=== PATIENT | male | born 1930 | race Caucasian/White ===

== ENCOUNTER 2018-08-30 13:54 | Emergency (ER) | payer OTHER, MEDICARE ==
[2018-08-30] MEDS ORDERED: LIDOCAINE 1% MPF 30 ML VIAL ONE (14:34)
[2018-08-30] MEDS ORDERED: CEPHALEXIN 250 MG CAP ONE (15:38)
[2018-08-30] MEDS ORDERED: TETANUS & DIPHTHERIA TOX,ADULT 0.5 ML VIAL ONE (15:38)
[2018-08-30] MEDS ORDERED: HYDROCODONE/APAP 7.5/325 MG TAB ONE (15:38)
--- NOTE | 2018-08-30 16:02 | ER ---
Nurse's Notes [facility] Name: Ariel Ibarra Jr Age: 88 yrs Sex: Male : 1930 Arrival Date: 08/30/2018 Time: 13:56 Bed 8 Private MD: Gm Sommer R Diagnosis: Fall due to bumping against object;Laceration without foreign body of other part of head-lip , through and through;Fracture of tooth (traumatic) Presentation: 08/30 14:01 Presenting complaint: Patient states: got his foot caught on a step and fell face sv forward, abrasions to face, bilateral hands, right knee pain, and knocked a front tooth out. Care prior to arrival: None. Mechanism of Injury: Fall from standing position. Trauma event details: Injury occurred in the [facility], Injury occurred: at home. Injury occurred: August 30, 2018. 14:01 Acuity: JING 3 sv 14:01 Method Of Arrival: Ambulatory sv 14:29 Transition of care: patient was not received from another setting of care. Onset of tw2 symptoms was August 30, 2018. Risk Assessment: Do you want to hurt yourself or someone else? Patient reports no desire to harm self or others. Initial Sepsis Screen: Does the patient meet any 2 criteria? No. Patient's initial sepsis screen is negative. Does the patient have a suspected source of infection? No. Patient's initial sepsis screen is negative. Trauma Activation: Not Applicable Physician: ED Physician; Name: ; Notified At: ; Arrived At: Physician: General Surgeon; Name: ; Notified At: ; Arrived At: Physician: Radiology; Name: ; Notified At: ; Arrived At: Physician: Respiratory; Name: ; Notified At: ; Arrived At: Physician: Lab; Name: ; Notified At: ; Arrived At: Historical: - Allergies: 14:03 No Known Allergies; sv - Home Meds: 14:32 aspirin 81 mg Oral TbEC 1 tab once daily [Active]; Centrum Silver Oral daily [Active]; tw2 lisinopril-hydrochlorothiazide 10-12.5 mg Oral tab 1 tab once daily [Active]; - PMHx: 14:03 Atrial Fib; HARD OF HEARING; Hypertension; sv - PSHx: 14:03 Appendectomy; Hernia repair; sv - Immunization history:: Adult Immunizations up to date. - Social history:: Smoking status: Patient/guardian denies using tobacco. - Immunization history: Last tetanus immunization: unknown. - Ebola Screening: : No symptoms or risks identified at this time. - Family history:: not pertinent. Screenin:08 Abuse screen: Denies threats or abuse. Nutritional screening: No deficits noted. tw2 Tuberculosis screening: No symptoms or risk factors identified. Fall Risk None identified. Primary Survey: 14:08 A: Airway: patent. Breathing/Chest: Respiratory pattern: regular, Respiratory effort: tw2 spontaneous, unlabored, Breath sounds: clear, bilaterally. Chest inspection: symmetrical rise and fall of the chest. Circulation: Heart tones present. Disability Alert. 15:15 Reassessment Airway Airway Patent Breathing/Chest Respiratory pattern Regular tw2 Respiratory effort Spontaneous Unlabored Breath sounds Clear Chest inspection Symmetrical Circulation Heart tones Present Disability Alert. Secondary Survey: 14:15 HEENT: Face Other abrasions noted to nose, lip, and chin, with laceration to the upper tw2 lip. Gastrointestinal: Abdomen is soft. : No signs and/or symptoms were reported regarding the genitourinary system. Musculoskeletal: Range of motion: intact in all extremities. pt has blood blister on the left ring finger, multiple abrasions noted to right and left hand. Assessment: 14:15 General: Appears in no apparent distress. Behavior is calm, cooperative, appropriate tw2 for age. Pain: Complains of pain in philtrum and upper vermilion border. Neuro: Level of Consciousness is awake, alert, obeys commands, Oriented to person, place, time, situation. Cardiovascular: Heart tones S1 S2 Patient's skin is warm and dry. Respiratory: Airway is patent Respiratory effort is even, unlabored, Respiratory pattern is regular, symmetrical, Breath sounds are clear bilaterally. GI: No signs and/or symptoms were reported involving the gastrointestinal system. Abdomen is flat, Bowel sounds present X 4 quads. : No signs and/or symptoms were reported regarding the genitourinary system. EENT: No signs and/or symptoms were reported regarding the EENT system. Derm: Skin is pink, warm \T\ dry. Skin temperature is warm. Musculoskeletal: Range of motion: intact in all extremities. Injury Description: Laceration sustained to philtrum is jagged, 0.5 to 2.5 cm long, not bleeding, front right tooth was knocked out in the fall, tooth has been placed in milk at this time, pts spouse has removed dental bridge at this time. 15:24 Reassessment: Patient appears in no apparent distress at this time. No changes from tw2 previously documented assessment. Patient and/or family updated on plan of care and expected duration. Pain level reassessed. Patient is alert, oriented x 3, equal unlabored respirations, skin warm/dry/pink. 16:25 Reassessment: Patient appears in no apparent distress at this time. No changes from tw2 previously documented assessment. Patient and/or family updated on plan of care and expected duration. Pain level reassessed. Patient is alert, oriented x 3, equal unlabored respirations, skin warm/dry/pink. Dr. Jain at bedside suturing at this time. 16:49 Reassessment: Patient appears in no apparent distress at this time. No changes from tw2 previously documented assessment. Patient and/or family updated on plan of care and expected duration. Pain level reassessed. Patient is alert, oriented x 3, equal unlabored respirations, skin warm/dry/pink. Vital Signs: 14:03 BP 131 / 69; Pulse 89; Resp 18; Temp 98.9; Weight 96.16 kg; Height 6 ft. 3 in. (190.50 sv cm); Pain 0/10; 14:12 Pulse Ox 99% on R/A; tw2 15:24 BP 137 / 85; Pulse 81; Resp 17; Pulse Ox 99% on R/A; tw2 16:28 BP 139 / 84; Pulse 86; Resp 17; Pulse Ox 100% on R/A; tw2 14:03 Body Mass Index 26.50 (96.16 kg, 190.50 cm) sv [place] Coma Score: 14:09 Eye Response: spontaneous(4). Verbal Response: oriented(5). Motor Response: obeys tw2 commands(6). Total: 15. Trauma Score (Adult): 14:09 Eye Response: spontaneous(1); Verbal Response: oriented(1); Motor Response: obeys tw2 commands(2); Systolic BP: > 89 mm Hg(4); Respiratory Rate: 10 to 29 per min(4); [place] Score: 15; Trauma Score: 12 ED Course: 11:15 Thermoregulation: warm blanket given to patient. tw2 13:56 Patient arrived in ED. dl4 13:57 Gm Sommer MD is Private Physician. dl4 14:03 Triage completed. sv 14:04 Arm band placed on. sv 14:05 Patient maintains SpO2 saturation greater than 95% on room air. tw2 14:08 Sylvia Guevara RN is Primary Nurse. tw2 14:13 Rickie Jain MD is Attending Physician. nahun 14:15 Placed in gown. Bed in low position. Adult w/ patient. Pulse ox on. NIBP on. Warm tw2 blanket given. 16:01 Gm Sommer MD is Referral Physician. nahun 16:01 Aime Colvin DDS is Referral Physician. nahun 16:13 Awaiting: suturing at this time. tw2 16:47 Assist provider with laceration repair on upper vermilion border and philtrum using tw2 sutures. Set up tray. Performed by Rickie Jain MD Patient tolerated well. Patient did not have IV access during this emergency room visit. 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 Exp: tw2 10/15/2020. Lot #: [id number]. } Route: IM; Site: right deltoid; 16:47 Follow up: Response: No adverse reaction tw2 15:36 Drug: [place] (7.5 mg-325 mg) 1 tabs Route: PO; tw2 16:46 Follow up: Response: No adverse reaction; Pain is decreased tw2 15:37 Drug: KeFLEX 500 mg Route: PO; tw2 16:46 Follow up: Response: No adverse reaction tw2 16:25 Drug: Lidocaine (1 %) 20 ml Volume: 20 ml; Route: Infiltration; tw2 Output: 16:48 Urine: 200ml (Voided); Total: 200ml. tw2 Outcome: 16:01 Discharge ordered by . nahun 16:48 Discharged to home via wheelchair, with significant other. tw2 16:48 Condition: stable 16:48 Patient's length of stay in the Emergency Department was greater than 2 hours. Suture timePatient's length of stay extended due to 16:49 Discharge instructions given to patient, significant other, Instructed on discharge tw2 instructions, follow up and referral plans. no drinking with medication, no driving heavy equipment, medication usage, wound care, Demonstrated understanding of instructions, follow-up care, medications, wound care, Prescriptions given X 3. 16:49 Patient left the ED. tw2 Signatures: Janey Ruggiero RN RN Rickie Frey MD MD cha Wise, Tara, RN RN tw2 Ruel Maki dl4 Corrections: (The following items were deleted from the chart) 14:04 14:03 BP 131 / 69; Resp 18bpm; Temp 98.9F; 96.16 kg; Height 6 ft. 3 in.; BMI: 26.5; sv Pain 0/10; sv
--- NOTE | 2018-08-30 16:03 | EDPHYS ---
Physician Documentation [facility] Name: Ariel Ibarra Jr Age: 88 yrs Sex: Male : 1930 Arrival Date: 08/30/2018 Time: 13:56 Bed 8 Private MD: Gm Sommer R ED Physician Rickie Jain HPI: 08/30 15:21 This 88 yrs old Male presents to ER via Ambulatory with complaints of Fall nahun Injury. 15:21 Details of fall: The patient fell from an upright position, while walking. Onset: The nahun symptoms/episode began/occurred just prior to arrival. Associated injuries: The patient sustained injury to the head, hematoma, laceration, pain, swelling, mouth and upper vermilion border and philtrum. Severity of symptoms: At their worst the symptoms were mild, in the emergency department the symptoms are unchanged. The patient has not experienced similar symptoms in the past. Historical: - Allergies: 14:03 No Known Allergies; sv - Home Meds: 14:32 aspirin 81 mg Oral TbEC 1 tab once daily [Active]; Centrum Silver Oral daily [Active]; tw2 lisinopril-hydrochlorothiazide 10-12.5 mg Oral tab 1 tab once daily [Active]; - PMHx: 14:03 Atrial Fib; HARD OF HEARING; Hypertension; sv - PSHx: 14:03 Appendectomy; Hernia repair; sv - Immunization history:: Adult Immunizations up to date. - Social history:: Smoking status: Patient/guardian denies using tobacco. - Immunization history: Last tetanus immunization: unknown. - Ebola Screening: : No symptoms or risks identified at this time. - Family history:: not pertinent. ROS: 15:21 Constitutional: Negative for fever, chills, and weight loss, Eyes: Negative for injury, nahun pain, redness, and discharge, ENT: Negative for injury, pain, and discharge, Neck: Negative for injury, pain, and swelling, Cardiovascular: Negative for chest pain, palpitations, and edema, Respiratory: Negative for shortness of breath, cough, wheezing, and pleuritic chest pain, Abdomen/GI: Negative for abdominal pain, nausea, vomiting, diarrhea, and constipation, Back: Negative for injury and pain, : Negative for injury, bleeding, discharge, and swelling, MS/Extremity: Negative for injury and deformity, Neuro: Negative for headache, weakness, numbness, tingling, and seizure, Psych: Negative for depression, anxiety, suicide ideation, homicidal ideation, and hallucinations, Allergy/Immunology: Negative for hives, rash, and allergies, Endocrine: Negative for neck swelling, polydipsia, polyuria, polyphagia, and marked weight changes, Hematologic/Lymphatic: Negative for swollen nodes, abnormal bleeding, and unusual bruising. 15:21 Skin: Positive for laceration(s), swelling, of the mouth and upper vermilion border and philtrum. Exam: 15:21 Constitutional: This is a well developed, well nourished patient who is awake, alert, nahun and in no acute distress. Eyes: Pupils equal round and reactive to light, extra-ocular motions intact. Lids and lashes normal. Conjunctiva and sclera are non-icteric and not injected. Cornea within normal limits. Periorbital areas with no swelling, redness, or edema. ENT: Nares patent. No nasal discharge, no septal abnormalities noted. Tympanic membranes are normal and external auditory canals are clear. Oropharynx with no redness, swelling, or masses, exudates, or evidence of obstruction, uvula midline. Mucous membranes moist. Neck: Trachea midline, no thyromegaly or masses palpated, and no cervical lymphadenopathy. Supple, full range of motion without nuchal rigidity, or vertebral point tenderness. No Meningismus. Chest/axilla: Normal chest wall appearance and motion. Nontender with no deformity. No lesions are appreciated. Cardiovascular: Regular rate and rhythm with a normal S1 and S2. No gallops, murmurs, or rubs. Normal PMI, no JVD. No pulse deficits. Respiratory: Lungs have equal breath sounds bilaterally, clear to auscultation and percussion. No rales, rhonchi or wheezes noted. No increased work of breathing, no retractions or nasal flaring. Abdomen/GI: Soft, non-tender, with normal bowel sounds. No distension or tympany. No guarding or rebound. No evidence of tenderness throughout. Back: No spinal tenderness. No costovertebral tenderness. Full range of motion. Skin: Warm, dry with normal turgor. Normal color with no rashes, no lesions, and no evidence of cellulitis. MS/ Extremity: Pulses equal, no cyanosis. Neurovascular intact. Full, normal range of motion. Neuro: Awake and alert, GCS 15, oriented to person, place, time, and situation. Cranial nerves II-XII grossly intact. Motor strength 5/5 in all extremities. Sensory grossly intact. Cerebellar exam normal. Normal gait. Psych: Awake, alert, with orientation to person, place and time. Behavior, mood, and affect are within normal limits. 15:21 Head/face: Noted is a laceration(s), that is jagged, 2.5 cm(s), swelling, that is moderate, of the nose and mouth. 15:21 Musculoskeletal/extremity: ROM: full active range of motion, full passive range of motion, Circulation is intact in all extremities. Sensation intact. Compartment Syndrome exam of affected extremity: is normal. no numbness, no tingling, no sensation deficit, no palor, no weak pulses. 15:57 Neck: External neck: is normal, C-spine: appears grossly normal, no acute changes, nahun vertebral tenderness, is not appreciated, Thyroid: appears normal, Trachea: is midline with no obvious abnormalities, ROM/movement: is normal, no acute changes, Lymph nodes: no appreciated lymphadenopathy. 15:57 Musculoskeletal/extremity: skin tears on both hands, no bony tenderness, no suspicion of fractures. Vital Signs: 14:03 BP 131 / 69; Pulse 89; Resp 18; Temp 98.9; Weight 96.16 kg; Height 6 ft. 3 in. (190.50 sv cm); Pain 0/10; 14:12 Pulse Ox 99% on R/A; tw2 15:24 BP 137 / 85; Pulse 81; Resp 17; Pulse Ox 99% on R/A; tw2 16:28 BP 139 / 84; Pulse 86; Resp 17; Pulse Ox 100% on R/A; tw2 14:03 Body Mass Index 26.50 (96.16 kg, 190.50 cm) sv [place] Coma Score: 14:09 Eye Response: spontaneous(4). Verbal Response: oriented(5). Motor Response: obeys tw2 commands(6). Total: 15. Trauma Score (Adult): 14:09 Eye Response: spontaneous(1); Verbal Response: oriented(1); Motor Response: obeys tw2 commands(2); Systolic BP: > 89 mm Hg(4); Respiratory Rate: 10 to 29 per min(4); [place] Score: 15; Trauma Score: 12 Procedures: 15:21 I \T\ D: Incision and drainage was performed for an abscess of the. [facility] Laceration: 15:21 Wound Repair of 2.5cm ( 1.0in ) subcutaneous laceration to mouth and upper vermilion nahun border and philtrum. Irregularly shaped.. Skin/tissue flap noted.. Distal neuro/vascular/tendon intact. Anesthesia: Local anesthetic administered with 5 mls of 1% lidocaine. Wound prep: Moderate cleansing by me. Skin closed with 3 5-0 chromic using running sutures and sterile technique. Dressed with Neosporin. Patient tolerated well. [facility]: 14:13 Patient medically screened. [facility] 15:21 Data reviewed: vital signs, nurses notes. [facility] 08/30 14:52 Order name: Gloves, Sterile; Complete Time: 14:52 [facility] 08/30 14:52 Order name: Setup Suture Tray; Complete Time: 14:52 [facility] 08/30 15:21 Order name: Ice pack; Complete Time: 15:44 [facility] 08/30 15:23 Order name: Wound Care; Complete Time: 15:23 tw2 Administered Medications: 15:36 Drug: Tetanus-Diphtheria Toxoid Adult 0.5 ml {[employer]er [employer] Ginning: [employer]. Exp: 10/15/2020. Lot #: [id number]. } Route: IM; Site: right deltoid; 16:47 Follow up: Response: No adverse reaction tw2 15:36 Drug: [place] (7.5 mg-325 mg) 1 tabs Route: PO; tw2 16:46 Follow up: Response: No adverse reaction; Pain is decreased tw2 15:37 Drug: KeFLEX 500 mg Route: PO; tw2 16:46 Follow up: Response: No adverse reaction tw2 16:25 Drug: Lidocaine (1 %) 20 ml Volume: 20 ml; Route: Infiltration; tw2 Disposition: 08/30/18 16:01 Discharged to Home. Impression: Fall due to bumping against object, Laceration without foreign body of other part of head - lip , through and through, Fracture of tooth (traumatic). - Condition is Stable. - Discharge Instructions: Fall Prevention in the Home, Facial Laceration, Tooth Injuries, Tooth Avulsion, Facial Laceration, [id number], Fall Prevention in the Home, [id number], Tooth Injuries, [id number]. - Prescriptions for Bactroban 2 % Topical Ointment - Apply to affected area 1 application by TOPICAL route every 12 hours; 30 gram. Keflex 500 mg Oral Capsule - take 1 capsule by ORAL route every 6 hours for 10 days; 40 capsule. Tylenol- Codeine #3 300-30 mg Oral Tablet - take 2 tablets by ORAL route every 6 hours As needed; 24 tablet. - Medication Reconciliation Form, Thank You Letter, Antibiotic Education, Prescription Opioid Use form. - Follow up: Gm Sommer; When: 2 - 3 days; Reason: Recheck today's complaints, Continuance of care, Re-evaluation by your physician. Follow up: Aime Colvin; When: 2 - 3 days; Reason: Recheck today's complaints, Re-evaluation by your physician. - Problem is new. - Symptoms have improved. Signatures: Janey Ruggiero RN RN Rickie Jain MD MD cha Wise, Tara, RN RN tw2 Corrections: (The following items were deleted from the chart) 16:49 16:01 08/30/2018 16:01 Discharged to Home. Impression: Fall due to bumping against tw2 object; Laceration without foreign body of other part of head - lip , through and through; Fracture of tooth (traumatic). Condition is Stable. Discharge Instructions: Fall Prevention in the Home, Facial Laceration, Facial Laceration, [id number], Fall Prevention in the Home, [id number], Tooth Injuries, Tooth Avulsion, Tooth Injuries, [id number]. Prescriptions for Bactroban 2 % Topical Ointment - Apply to affected area 1 application by TOPICAL route every 12 hours; 30 gram, Keflex 500 mg Oral Capsule - take 1 capsule by ORAL route every 6 hours for 10 days; 40 capsule, Tylenol-Codeine #3 300-30 mg Oral Tablet - take 2 tablets by ORAL route every 6 hours As needed; 24 tablet. and Forms are Medication Reconciliation Form, Thank You Letter, Antibiotic Education, Prescription Opioid Use. Follow up: Gm Sommer; When: 2 - 3 days; Reason: Recheck today's complaints, Continuance of care, Re-evaluation by your physician. Follow up: Aime Colvin; When: 2 - 3 days; Reason: Recheck today's complaints, Re-evaluation by your physician. Problem is new. Symptoms have improved. nahun
[2018-08-30 16:54] VITALS: TEMP 98.9
[2018-08-30 16:58] VITALS: BP 139/84; O2SAT 100
== END 2018-08-30 16:49 | disposition home or self-care (01) ==
LOC: ER 13:54
PROC: 0JQ10ZZ Repair Face Subcutaneous Tissue and Fascia, Open Approach (ICD-10-PCS; principal; 2018-08-30)
DX: S01.511A Laceration without foreign body of lip, initial encounter (principal); S02.5XXA Fracture of tooth (traumatic), initial encounter for closed fracture; S60.512A Abrasion of left hand, initial encounter; S60.511A Abrasion of right hand, initial encounter; W01.198A Fall on same level from slipping, tripping and stumbling with subsequent striking against other object, initial encounter; Z23 Encounter for immunization; I48.91 Unspecified atrial fibrillation; I10 Essential (primary) hypertension; Z79.82 Long term (current) use of aspirin; Z79.899 Other long term (current) drug therapy
CPT/HCPCS: 90714; 99284